=== PATIENT | male | born 1960 | race Caucasian/White ===

== ENCOUNTER 2018-01-17 07:48 | Emergency (ER) | payer OTHER ==
[2018-01-17] MEDS ORDERED: SODIUM CHLORIDE 0.9% 1,000 ML IV STA (08:23)
[2018-01-17] MEDS ORDERED: IPRATROPIUM 0.5 MG/2.5 ML NEBU INHALATION STA (08:23)
[2018-01-17] MEDS ORDERED: SODIUM CHLORIDE 0.9% 500 ML IV STA (08:23)
[2018-01-17] MEDS ORDERED: ALBUTEROL NEBULIZED 2.5 MG/3 ML INHALATION STA (08:23)
[2018-01-17] MEDS ORDERED: methylPREDNISolone SOD SUCCI 125 MG/2 ML VIAL IV STA (08:23)
[2018-01-17 09:04] LABS: Basophils # (A) 0.1 k/uL (0-0.2); Basophils % (A) 1 %; Eosinophils # (A) 0.3 k/uL (0-0.7); Eosinophils % (A) 4 %; HCT 46.4 % (39.0-53.0); HGB 15.9 gm/dL (13.0-17.5); Lymphocytes # (A) 0.7 k/uL (1.0-4.8); Lymphocytes % (A) 10 %; MCH 29.8 pg (25.0-35.0); MCHC 34.3 g/dL (31.0-37.0); MCV 86.7 fL (80.0-100.0); Mean Platelet Volume 6.6; Monocytes # (A) 0.7 k/uL (0-1.0); Monocytes % (A) 10 %; Neutrophils # (A) 5.1 k/uL (1.3-7.7); Neutrophils % (A) 73 %; Platelet Count 220 k/uL (150-450); RBC 5.35 m/uL (4.30-5.90); RDW 14.3 % (11.5-15.5)
--- NOTE | 2018-01-17 09:04 | ED ---
General Adult HPI - General Chief complaint: Shortness of Breath Stated complaint: NICHOLE Hx asthma Time Seen by Provider: 01/17/18 08:04 Source: patient, RN notes reviewed, old records reviewed Mode of arrival: wheelchair Limitations: no limitations - History of Present Illness Initial comments: This is a 57-year-old male the ER for evaluation significant shortness of breath 3 days. Patient has history of asthma. Denies travel history no chest pain. No fevers. No coughing of phlegm or sputum. Patient states symptoms are worse with activity better with rest. Patient not currently doing breathing treatments at home - Related Data Home Medications Medication Instructions Recorded Confirmed Albuterol Inhaler [Ventolin Hfa 2 puff INHALATION RT-Q6H PRN 01/17/18 01/17/18 Inhaler] Fluticasone/Salmeterol [Advair 1 puff INHALATION RT-BID 01/17/18 01/17/18 250-50 Diskus] Pseudoephedrine 12Hr [Sudafed 12Hr] 120 mg PO Q12H PRN 01/17/18 01/17/18 Allergies Allergy/AdvReac Type Severity Reaction Status Date / Time banana Allergy Swelling Verified 01/17/18 08:29 melon Allergy Swelling Verified 01/17/18 08:29 walnut Allergy Swelling Verified 01/17/18 08:29 Review of Systems ROS Statement: Those systems with pertinent positive or pertinent negative responses have been documented in the HPI. ROS Other: All systems not noted in ROS Statement are negative. Past Medical History Past Medical History: Asthma History of Any Multi-Drug Resistant Organisms: None Reported Past Surgical History: Tonsillectomy Past Psychological History: No Psychological Hx Reported Smoking Status: Former smoker Past Alcohol Use History: Rare Past Drug Use History: None Reported General Exam Limitations: no limitations General appearance: alert, in no apparent distress, anxious Head exam: Present: atraumatic, normocephalic, normal inspection Eye exam: Present: normal appearance, PERRL, EOMI. Absent: scleral icterus, conjunctival injection, periorbital swelling ENT exam: Present: normal exam, mucous membranes moist Neck exam: Present: normal inspection. Absent: tenderness, meningismus, lymphadenopathy Respiratory exam: Present: normal lung sounds bilaterally, wheezes, accessory muscle use, decreased breath sounds, prolonged expiratory. Absent: respiratory distress, rales, rhonchi, stridor Cardiovascular Exam: Present: normal rhythm, tachycardia, normal heart sounds. Absent: systolic murmur, diastolic murmur, rubs, gallop, clicks GI/Abdominal exam: Present: soft, normal bowel sounds. Absent: distended, tenderness, guarding, rebound, rigid Extremities exam: Present: normal inspection, full ROM, normal capillary refill. Absent: tenderness, pedal edema, joint swelling, calf tenderness Back exam: Present: normal inspection Neurological exam: Present: alert, oriented X3, CN II-XII intact Psychiatric exam: Present: normal affect, normal mood Skin exam: Present: warm, dry, intact, normal color. Absent: rash Course Vital Signs 01/17/18 01/17/18 01/17/18 07:54 08:19 08:48 Temperature 98.1 F Pulse Rate 98 90 Respiratory 18 22 Rate Blood Pressure 163/101 O2 Sat by Pulse 96 Oximetry 01/17/18 01/17/18 01/17/18 09:08 09:30 09:46 Temperature Pulse Rate 98 111 H 116 H Respiratory Rate Blood Pressure O2 Sat by Pulse Oximetry 01/17/18 01/17/18 01/17/18 09:56 10:23 10:37 Temperature Pulse Rate 111 H 102 H 100 Respiratory 20 19 Rate Blood Pressure 171/81 162/90 O2 Sat by Pulse 97 100 Oximetry 01/17/18 11:14 Temperature Pulse Rate Respiratory Rate Blood Pressure O2 Sat by Pulse 92 L Oximetry - Reevaluation(s) Reevaluation #1: 01/17/18 11:33 Patient did and laboratory walking pulse ox after 2 breathing treatments and did pass without oxygen in the 90-93 range EKG Findings - EKG Comments: EKG Findings:: EKG shows sinus rhythm rate of 90, NC 142, QRS 88, QTc 441 Medical Decision Making - Medical Decision Making 57 male the ER COPD exacerbation, acute onset of asthma COPD. Patient can be discharged home to return if shortness of breath worsens - Lab Data Result diagrams: 01/17/18 08:40 01/17/18 08:40 Lab Results 01/17/18 01/17/18 01/17/18 Range/Units 08:40 08:40 08:40 WBC (3.8-10.6) k/uL RBC (4.30-5.90) m/uL Hgb (13.0-17.5) gm/dL Hct (39.0-53.0) % MCV (80.0-100.0) fL MCH (25.0-35.0) pg MCHC (31.0-37.0) g/dL RDW (11.5-15.5) % Plt Count (150-450) k/uL Neutrophils % % Lymphocytes % % Monocytes % % Eosinophils % % Basophils % % Neutrophils # (1.3-7.7) k/uL Lymphocytes # (1.0-4.8) k/uL Monocytes # (0-1.0) k/uL Eosinophils # (0-0.7) k/uL Basophils # (0-0.2) k/uL PT 10.0 (9.0-12.0) sec INR 1.0 (<1.2) APTT 22.6 (22.0-30.0) sec D-Dimer 0.32 (<0.60) mg/L FEU Sodium 143 (137-145) mmol/L Potassium 4.4 (3.5-5.1) mmol/L Chloride 107 (98-107) mmol/L Carbon Dioxide 28 (22-30) mmol/L Anion Gap 8 mmol/L BUN 13 (9-20) mg/dL Creatinine 0.87 (0.66-1.25) mg/dL Est GFR (CKD-EPI)AfAm >90 (>60 ml/min/1.73 sqM) Est GFR (CKD-EPI)NonAf >90 (>60 ml/min/1.73 sqM) Glucose 107 H (74-99) mg/dL Calcium 9.5 (8.4-10.2) mg/dL Magnesium 2.1 (1.6-2.3) mg/dL Total Bilirubin 0.9 (0.2-1.3) mg/dL AST 31 (17-59) U/L ALT 70 (21-72) U/L Alkaline Phosphatase 51 (38-126) U/L Total Creatine Kinase (55-170) U/L CK-MB (CK-2) (0.0-2.4) ng/mL CK-MB (CK-2) Rel Index Troponin I (0.000-0.034) ng/mL NT-Pro-B Natriuret Pep 52 pg/mL Total Protein 7.6 (6.3-8.2) g/dL Albumin 4.6 (3.5-5.0) g/dL 01/17/18 01/17/18 Range/Units 08:40 08:40 WBC 7.0 (3.8-10.6) k/uL RBC 5.35 (4.30-5.90) m/uL Hgb 15.9 (13.0-17.5) gm/dL Hct 46.4 (39.0-53.0) % MCV 86.7 (80.0-100.0) fL MCH 29.8 (25.0-35.0) pg MCHC 34.3 (31.0-37.0) g/dL RDW 14.3 (11.5-15.5) % Plt Count 220 (150-450) k/uL Neutrophils % 73 % Lymphocytes % 10 % Monocytes % 10 % Eosinophils % 4 % Basophils % 1 % Neutrophils # 5.1 (1.3-7.7) k/uL Lymphocytes # 0.7 L (1.0-4.8) k/uL Monocytes # 0.7 (0-1.0) k/uL Eosinophils # 0.3 (0-0.7) k/uL Basophils # 0.1 (0-0.2) k/uL PT (9.0-12.0) sec INR (<1.2) APTT (22.0-30.0) sec D-Dimer (<0.60) mg/L FEU Sodium (137-145) mmol/L Potassium (3.5-5.1) mmol/L Chloride (98-107) mmol/L Carbon Dioxide (22-30) mmol/L Anion Gap mmol/L BUN (9-20) mg/dL Creatinine (0.66-1.25) mg/dL Est GFR (CKD-EPI)AfAm (>60 ml/min/1.73 sqM) Est GFR (CKD-EPI)NonAf (>60 ml/min/1.73 sqM) Glucose (74-99) mg/dL Calcium (8.4-10.2) mg/dL Magnesium (1.6-2.3) mg/dL Total Bilirubin (0.2-1.3) mg/dL AST (17-59) U/L ALT (21-72) U/L Alkaline Phosphatase (38-126) U/L Total Creatine Kinase 263 H (55-170) U/L CK-MB (CK-2) 3.8 H* (0.0-2.4) ng/mL CK-MB (CK-2) Rel Index 1.4 Troponin I <0.012 (0.000-0.034) ng/mL NT-Pro-B Natriuret Pep pg/mL Total Protein (6.3-8.2) g/dL Albumin (3.5-5.0) g/dL - Radiology Data Radiology results: report reviewed (Chest x-rays negative for acute disease), image reviewed Critical Care Time Critical Care Time: Yes Total Critical Care Time: 31 Disposition Clinical Impression: Acute exacerbation of chronic obstructive airways disease Disposition: HOME SELF-CARE Condition: Good Instructions: Acute Bronchitis (ED), Chronic Bronchitis (ED) Is patient prescribed a controlled substance at d/c from ED?: No Referrals: None,Stated [Primary Care Provider] - 1-2 days
[2018-01-17 09:18] LABS: ALT 70 U/L (21-72); AST 31 U/L (17-59); Albumin 4.6 g/dL (3.5-5.0); Alkaline Phosphatase 51 U/L (38-126); Anion Gap 8 mmol/L; Blood Urea Nitrogen 13 mg/dL (9-20); Calcium 9.5 mg/dL (8.4-10.2); Carbon Dioxide 28 mmol/L (22-30); Chloride 107 mmol/L (98-107); Glucose 107 mg/dL (74-99); Magnesium 2.1 mg/dL (1.6-2.3); Potassium 4.4 mmol/L (3.5-5.1); Sodium 143 mmol/L (137-145); Total Bilirubin 0.9 mg/dL (0.2-1.3); Total Protein 7.6 g/dL (6.3-8.2)
[2018-01-17 09:19] LABS: D-Dimer 0.32 mg/L FEU (<0.60); Partial Thromboplastin Time 22.6 sec (22.0-30.0)
--- NOTE | 2018-01-17 09:27 | XR ---
EXAMINATION TYPE: XR chest 1V portable DATE OF EXAM: 01/17/2018 COMPARISON: NONE HISTORY: Shortness of breath, cough TECHNIQUE: Single frontal view of the chest is obtained. FINDINGS: There is no focal air space opacity, pleural effusion, or pneumothorax seen. The cardiac silhouette size is within normal limits. Prominent lung volume could be indicative of COPD. Patient i s rotated. There are overlying cardiac leads. The osseous structures are intact. IMPRESSION: No acute process.
[2018-01-17 09:40] LABS: Creatine Kinase 263 U/L (55-170)
[2018-01-17 09:53] LABS: Troponin I <0.012 ng/mL (0.000-0.034)
[2018-01-17 09:57] LABS: Creatine Kinase MB 3.8 ng/mL (0.0-2.4)
[2018-01-17] MEDS ORDERED: IPRATROPIUM-ALBUTEROL 3 ML NEB INHALATION STA (10:13)
[2018-01-17 10:45] VITALS: PULSE 100
[2018-01-17 12:36] VITALS: BP 147/76; RESP 18; TEMP 98.2
== END 2018-01-17 12:32 | disposition home or self-care (01) ==
LOC: EC 07:48
DX: J44.1 Chronic obstructive pulmonary disease with (acute) exacerbation (principal); J45.901 Unspecified asthma with (acute) exacerbation; Z79.51 Long term (current) use of inhaled steroids; Z91.018 Allergy to other foods; Z87.891 Personal history of nicotine dependence; Z90.89 Acquired absence of other organs
CPT/HCPCS: 36415; 94644; 93005; 85379; 83880; 80053; 82550; 82553; 83735; 84484; 85025; 85610; 85730; 71045; 99285; 96374; 96361 ×3; J2930

== ENCOUNTER 2018-01-17 20:36 | Inpatient (IN) | payer OTHER ==
[2018-01-17] MEDS ORDERED: ALBUTEROL NEBULIZED 2.5 MG/3 ML INHALATION STA ×2 (21:27→21:34)
--- NOTE | 2018-01-17 21:33 | ED ---
SOB HPI - General Chief Complaint: Shortness of Breath Stated Complaint: SOB Time Seen by Provider: 01/17/18 21:19 Source: patient, RN notes reviewed, old records reviewed Mode of arrival: wheelchair Limitations: no limitations - History of Present Illness Initial Comments: This is a 57-year-old male who presents to the emergency department with chief complaint of shortness of breath for the past 3 days. Patient was seen here earlier today and diagnosed with acute exacerbation of COPD. Patient does report a history of asthma. He has not been doing any breathing treatments at home. When he presented to the emergency department earlier today, it was recommended that patient be admitted, however he did go home because he states he was feeling better. He states that when he got home the shortness of breath returned and has progressively worsened throughout the afternoon. He states that he did take a dose of prednisone at 5 PM. He was discharged home with prednisone 50 mg. Patient states that while in the emergency department he was given Solu-Medrol and breathing treatments. He states that this relieved his symptoms so he thought he was well enough to be discharged home. At this time, patient complains of shortness of breath with difficulty exhaling. Denies chest pain. Denies fevers or chills. Denies abdominal pain, nausea or vomiting. - Related Data Home Medications Medication Instructions Recorded Confirmed Albuterol Sulfate [Proair Hfa] 1 - 2 puff INHALATION RT-Q4H PRN 01/17/18 Fluticasone/Salmeterol [Advair 1 puff INHALATION RT-BID 01/17/18 01/17/18 250-50 Diskus] Pseudoephedrine 12Hr [Sudafed 12Hr] 120 mg PO Q12H PRN 01/17/18 01/17/18 Previous Rx's Medication Instructions Recorded predniSONE 50 mg PO DAILY #5 tab 01/17/18 Allergies Allergy/AdvReac Type Severity Reaction Status Date / Time banana Allergy Swelling Verified 01/17/18 21:30 melon Allergy Swelling Verified 01/17/18 21:30 walnut Allergy Swelling Verified 01/17/18 21:30 Review of Systems ROS Statement: Those systems with pertinent positive or pertinent negative responses have been documented in the HPI. ROS Other: All systems not noted in ROS Statement are negative. Past Medical History Past Medical History: Asthma Additional Past Medical History / Comment(s): shingles History of Any Multi-Drug Resistant Organisms: None Reported Past Surgical History: Tonsillectomy Past Psychological History: No Psychological Hx Reported Smoking Status: Former smoker Past Alcohol Use History: Rare Past Drug Use History: None Reported General Exam - General Exam Comments Initial Comments: General: Awake and alert, well-developed; in no apparent distress. HEENT: Head atraumatic, normocephalic. Pupils are equal, round and reactive to light. Extraocular movements intact. Oropharynx moist without erythema or exudate. Neck: Supple. Normal ROM. Cardiovascular: Regular rate and rhythm. No murmurs, rubs or gallops. Chest symmetrical. Respiratory: Labored breathing. Minimal movement of air throughout the lungs. There is diffuse wheezes noted. No rhonchi or rales. Musculoskeletal: Normal ROM, no tenderness bilateral upper and lower extremities. Skin: [employer], warm and dry without rashes or lesions. Neurological: Alert and oriented x3. CN II-XII grossly intact. Speech is fluent and answers are appropriate. No focal neuro deficits. Psychiatric: Normal mood and affect. No overt signs of depression or anxiety noted. Limitations: no limitations Course Vital Signs 01/17/18 01/17/18 01/17/18 20:45 21:36 21:46 Temperature 98.0 F Pulse Rate 109 H 100 106 H Respiratory 18 22 Rate Blood Pressure 163/85 169/93 O2 Sat by Pulse 95 97 Oximetry 01/17/18 21:51 Temperature Pulse Rate 106 H Respiratory Rate Blood Pressure O2 Sat by Pulse Oximetry Medical Decision Making - Medical Decision Making This is a 57-year-old male who presented to the emergency department with chief complaint of shortness of breath. Patient was seen earlier today and it was recommended that he be admitted for acute asthma exacerbation. Patient states after some Solu-Medrol and breathing treatments he felt better and wanted to be discharged home. He states that when he returned home this afternoon his difficulty in breathing returned. He states that it has progressively worsened throughout the afternoon. Patient re-presented to the emergency department. On physical examination, patient did have labored breathing. Diminished breath sounds throughout all lung sosa with diffuse wheezes. Patient received multiple breathing treatments with minimal improvement in lung sounds. Review of previous laboratory studies and chest x-ray revealed no significant abnormalities. CBC and CMP were unremarkable. Troponin and d-dimer negative. Chest x-ray revealed evidence for COPD, however no other acute abnormalities. This case was discussed with attending physician, Dr. Rubi. Patient will be admitted for acute asthma exacerbation to Dr. Auguste. Financial Business Analyst, Dr. Aggarwal will be consulted. Patient will be started on nebulizer treatments and prednisone. Patient is in agreement for admission. Vitals are stable and he is in no acute distress. Disposition Clinical Impression: Acute asthma exacerbation Disposition: ADMITTED IP TO THIS HOSP Condition: Fair Is patient prescribed a controlled substance at d/c from ED?: No Referrals: None,Stated [Primary Care Provider] - 1-2 days Time of Disposition: 22:34
[2018-01-17] MEDS: IPRATROPIUM-ALBUTEROL 3 ML NEB INHALATION STA (21:34)
[2018-01-17] MEDS ORDERED: ALBUTEROL NEBULIZED 2.5 MG/3 ML INHALATION PRN (22:35)
[2018-01-17] MEDS: SODIUM CHLORIDE 0.9% 1,000 ML IV SCH (23:15)
[2018-01-18] MEDS: IPRATROPIUM-ALBUTEROL 3 ML NEB INHALATION PRN ×3 (02:04→08:41)
[2018-01-18] MEDS: SODIUM CHLORIDE 0.9% 1,000 ML IV SCH (08:19)
[2018-01-18] MEDS ORDERED: predniSONE 20 MG TAB PO SCH (09:00)
[2018-01-18] MEDS ORDERED: ALBUTEROL NEBULIZED 2.5 MG/3 ML INHALATION PRN (10:38)
[2018-01-18] MEDS: AMOXIC-POT CLAV 875-125MG 1 EACH TAB PO SCH ×2 (11:46→20:25)
[2018-01-18] MEDS: methylPREDNISolone SOD SUCCI 125 MG/2 ML VIAL IV SCH ×2 (11:46→18:04)
[2018-01-18] MEDS: IPRATROPIUM-ALBUTEROL 3 ML NEB INHALATION SCH ×3 (11:52→19:24)
[2018-01-18 11:56] LABS: Glucose,Whole Blood 123 mg/dL (75-99)
[2018-01-18] MEDS: INSULIN ASPART 100 UNIT/ML 1 ML 10 ML VIAL SQ SCH ×3 (11:59→21:27)
[2018-01-18] MEDS ORDERED: ALBUTEROL NEBULIZED 2.5 MG/3 ML INHALATION SCH (12:00)
[2018-01-18] MEDS ORDERED: IPRATROPIUM-ALBUTEROL 3 ML NEB INHALATION STA (13:26)
[2018-01-18] MEDS: IPRATROPIUM-ALBUTEROL 3 ML NEB INHALATION STA (13:34)
[2018-01-18] MEDS: ALPRAZolam 0.25 MG TAB PO PRN (13:36)
--- NOTE | 2018-01-18 13:50 | P.HPIM ---
History of Present Illness Patient is 70-year-old gentleman with history of asthma since childhood patient used to smoke 20 years ago came in with complaints of wheezing shortness of breath going on for about a few days about 3-4 days, patient visited ER yesterday and the left against medical advise was given oral steroids without any significant improvement patient 6 hours later had worsening symptoms of severe shortness of breath and wheezing came back to ER was subsequently admitted patient is comparing of cough with the yellowish to greenish sputum production and patient chest x-ray did not show any pneumonic process patient has been wheezing on exam and significantly limited air entry into bilateral lung sosa CBC and CMP during his previous visit yesterday are essentially within normal limits. Review of Systems REVIEW OF SYSTEMS: CONSTITUTIONAL: No fever, no malaise, no fatigue. HEENT: No recent visual problems or hearing problems. Denied any sore throat. CARDIOVASCULAR: No chest pain, orthopnea, PND, no palpitations, no syncope. PULMONARY:, no hemoptysis. GASTROINTESTINAL: No diarrhea, no nausea, no vomiting, no abdominal pain. Normoactive bowel sounds. NEUROLOGICAL: No headaches, no weakness, no numbness. HEMATOLOGICAL: Denies any bleeding or petechiae. GENITOURINARY: Denies any burning micturition, frequency, or urgency. MUSCULOSKELETAL/RHEUMATOLOGICAL: Denies any joint pain, swelling, or any muscle pain. ENDOCRINE: Denies any polyuria or polydipsia. The rest of the 14-point review of systems is negative. Past Medical History Past Medical History: Asthma Additional Past Medical History / Comment(s): shingles History of Any Multi-Drug Resistant Organisms: None Reported Past Surgical History: Tonsillectomy Past Anesthesia/Blood Transfusion Reactions: No Reported Reaction Past Psychological History: No Psychological Hx Reported Smoking Status: Former smoker Past Alcohol Use History: Rare Past Drug Use History: None Reported - Past Family History Father Family Medical History: Dementia Mother Additional Family Medical History / Comment(s): AAA Medications and Allergies Home Medications Medication Instructions Recorded Confirmed Type Albuterol Sulfate [Proair Hfa] 1 - 2 puff INHALATION RT-Q4H PRN 01/17/18 History Fluticasone/Salmeterol [Advair 1 puff INHALATION RT-BID 01/17/18 01/17/18 History 250-50 Diskus] Pseudoephedrine 12Hr [Sudafed 12Hr] 120 mg PO Q12H PRN 01/17/18 01/17/18 History predniSONE 50 mg PO DAILY #5 tab 01/17/18 01/17/18 Rx Allergies Allergy/AdvReac Type Severity Reaction Status Date / Time banana Allergy Swelling Verified 01/17/18 21:30 melon Allergy Swelling Verified 01/17/18 21:30 walnut Allergy Swelling Verified 01/17/18 21:30 Physical Exam Vitals: Vital Signs Temp Pulse Pulse Resp BP BP Pulse Ox 01/18/18 13:35 112 H 01/18/18 12:08 116 H 01/18/18 11:53 108 H 01/18/18 08:53 104 H 01/18/18 08:41 100 01/18/18 06:07 97.1 F L 103 H 20 138/80 98 01/18/18 05:44 100 01/18/18 05:29 100 01/18/18 02:17 96 01/18/18 02:08 97 96 01/17/18 23:35 98.1 F 96 18 142/87 96 01/17/18 22:58 96 20 146/76 96 01/17/18 21:51 106 H 01/17/18 21:46 106 H 22 169/93 97 01/17/18 21:36 100 01/17/18 20:45 98.0 F 109 H 18 163/85 95 Intake and Output 01/17/18 01/18/18 01/18/18 22:59 06:59 14:59 Intake Total 600 Balance 600 Intake: Oral 600 Other: # Voids 1 Weight 84.822 kg PHYSICAL EXAMINATION: GENERAL: The patient is alert and oriented x3, not in any acute distress. Well developed, well nourished. HEENT: Pupils are round and equally reacting to light. EOMI. No scleral icterus. No conjunctival pallor. Normocephalic, atraumatic. No pharyngeal erythema. No thyromegaly. CARDIOVASCULAR: S1 and S2 present. No murmurs, rubs, or gallops. PULMONARY: Significant expiratory wheezing and limited air entry into bilateral lung sosa. ABDOMEN: Soft, nontender, nondistended, normoactive bowel sounds. No palpable organomegaly. MUSCULOSKELETAL: No joint swelling or deformity. EXTREMITIES: No cyanosis, clubbing, or pedal edema. NEUROLOGICAL: Gross neurological examination did not reveal any focal deficits. SKIN: No rashes. Results Labs: Abnormal Lab Results - Last 24 Hours (Table) 01/18/18 Range/Units 11:54 POC Glucose (mg/dL) 123 H (75-99) mg/dL Thrombosis Risk Factor Assmnt - Choose All That Apply Any of the Below Risk Factors Present?: Yes Each Factor Represents 1 point: Abnormal pulmonary function (COPD), Age 41-60 years Other Risk Factors: No Other congenital or acquired thrombophilia - If yes, enter type in comment: No Thrombosis Risk Factor Assessment Total Risk Factor Score: 2 Thrombosis Risk Factor Assessment Level: Low Risk Assessment and Plan Plan: -Acute hypercapnic respiratory failure secondary to COPD exacerbation patient is started on systemic steroids inhalational treatments patient doesn't wear oxygen at home. Patient mostly has a COPD exacerbation along with asthma exacerbation -Tachycardia secondary to hypoxemia expected to improve
[2018-01-18 14:50] LABS: Anion Gap 11 mmol/L; Blood Urea Nitrogen 16 mg/dL (9-20); Calcium 9.6 mg/dL (8.4-10.2); Carbon Dioxide 23 mmol/L (22-30); Chloride 108 mmol/L (98-107); Glucose 134 mg/dL (74-99); Potassium 4.7 mmol/L (3.5-5.1); Sodium 142 mmol/L (137-145)
[2018-01-18 14:59] LABS: Basophils % (A) 0 %; Eosinophils % (A) 0 %; HCT 44.7 % (39.0-53.0); HGB 14.9 gm/dL (13.0-17.5); Lymphocytes # (A) 0.6 k/uL (1.0-4.8); Lymphocytes % (A) 5 %; MCH 29.3 pg (25.0-35.0); MCHC 33.3 g/dL (31.0-37.0); MCV 88.1 fL (80.0-100.0); Monocytes # (A) 0.4 k/uL (0-1.0); Monocytes % (A) 3 %; Neutrophils # (A) 10.9 k/uL (1.3-7.7); Neutrophils % (A) 91 %; Platelet Count 237 k/uL (150-450); RBC 5.07 m/uL (4.30-5.90); RDW 14.4 % (11.5-15.5)
[2018-01-18] MEDS: PANTOPRAZOLE 40 MG/10 ML VIAL IVP SCH (15:37)
--- NOTE | 2018-01-18 16:12 | P.CNPUL ---
History of Present Illness Consult date: 01/18/18 Requesting physician: [place] Reason for consult: dyspnea, asthma Chief complaint: Shortness of breath, yellow phlegm production, acute asthma exacerbation History of present illness: Mr. Nash is a 57-year-old white male patient who currently has no primary care provider, presented to the emergency department on 01/17/2018 at 2036 with complaints of increasing shortness of breath, chest tightness, wheezing chest congestion, yellow phlegm production. Patient was in the emergency department earlier in the day for evaluation of his symptoms, has underlying history of asthma, and based on his symptoms and inpatient admission was recommended initially. However after he was given several nebulized treatments [id number] , he was given IV Solu-Medrol, was feeling better, and he insisted on going home. After he went home, his shortness of breath was still quite significant, patient was short of breath even with conversation. Hence he returned to the emergency department. Patient recently moved from [place], and has not established himself with the primary care provider or circulation assistant. He was diagnosed with bronchial asthma in childhood, and his common triggers is change of weather, increase humidity. Patient had undergone ALLERGY testing in the past, and tested positive for multiple allergens, was receiving ALLERGY shots, however they did not seem to improve his symptoms, and patient was experiencing side effects from them, like headaches. Hence he discontinued those. Did have a remote history of smoking for about 10 years, quit in his 20s. Has a prior history of status asthmaticus, requiring intubation and mechanical ventilation at age of 25. No major exacerbations or hospitalizations since then. He is maintained on a combination of Advair 250/50, and Ventolin. Has nighttime symptoms less than weekly, uses Ventolin inhaler on average about 2-3 times a week. His asthma has been under good control for a long time until this episode. Patient denied fever or chills, his symptoms started with a cold last Monday, became progressively worse. Chest x-ray showed no acute process. EKG was normal sinus rhythm. Patient does not have any other significant medical history. He was started on oral prednisone 50 mg, breathing treatments, and was admitted for further management. Review of Systems All systems: negative Constitutional: Denies chills, Denies fever Eyes: denies blurred vision, denies pain Ears, nose, mouth and throat: Denies headache, Denies sore throat Cardiovascular: Denies chest pain, Denies shortness of breath Respiratory: Reports congestion, Reports cough with sputum, Reports dyspnea, Reports wheezing, Denies cough Gastrointestinal: Denies abdominal pain, Denies diarrhea, Denies nausea, Denies vomiting Musculoskeletal: Denies myalgias Integumentary: Denies pruritus, Denies rash Neurological: Denies numbness, Denies weakness Psychiatric: Denies anxiety, Denies depression Endocrine: Denies fatigue, Denies weight change Past Medical History Past Medical History: Asthma Additional Past Medical History / Comment(s): shingles History of Any Multi-Drug Resistant Organisms: None Reported Past Surgical History: Tonsillectomy Past Anesthesia/Blood Transfusion Reactions: No Reported Reaction Past Psychological History: No Psychological Hx Reported Smoking Status: Former smoker Past Alcohol Use History: Rare Past Drug Use History: None Reported - Past Family History Father Family Medical History: Dementia Mother Additional Family Medical History / Comment(s): AAA Medications and Allergies Home Medications Medication Instructions Recorded Confirmed Type Albuterol Sulfate [Proair Hfa] 1 - 2 puff INHALATION RT-Q4H PRN 01/17/18 History Fluticasone/Salmeterol [Advair 1 puff INHALATION RT-BID 01/17/18 01/17/18 History 250-50 Diskus] Pseudoephedrine 12Hr [Sudafed 12Hr] 120 mg PO Q12H PRN 01/17/18 01/17/18 History predniSONE 50 mg PO DAILY #5 tab 01/17/18 01/17/18 Rx Allergies Allergy/AdvReac Type Severity Reaction Status Date / Time banana Allergy Swelling Verified 01/17/18 21:30 melon Allergy Swelling Verified 01/17/18 21:30 walnut Allergy Swelling Verified 01/17/18 21:30 Physical Exam Vitals: Vital Signs Temp Pulse Pulse Resp BP BP Pulse Ox 01/18/18 13:50 112 H 01/18/18 13:35 112 H 01/18/18 12:08 116 H 01/18/18 11:53 108 H 01/18/18 08:53 104 H 01/18/18 08:41 100 01/18/18 06:07 97.1 F L 103 H 20 138/80 98 01/18/18 05:44 100 01/18/18 05:29 100 01/18/18 02:17 96 01/18/18 02:08 97 96 01/17/18 23:35 98.1 F 96 18 142/87 96 01/17/18 22:58 96 20 146/76 96 01/17/18 21:51 106 H 01/17/18 21:46 106 H 22 169/93 97 01/17/18 21:36 100 01/17/18 20:45 98.0 F 109 H 18 163/85 95 Intake and Output 01/17/18 01/18/18 01/18/18 22:59 06:59 14:59 Intake Total 600 Output Total 400 Balance 600 -400 Intake: Oral 600 Output: Urine 400 Other: # Voids 1 Weight 84.822 kg GENERAL EXAM: Alert, pleasant, 57-year-old white male mildly short of breath, with normal conversation HEAD: Normocephalic/atraumatic. EYES: Normal reaction of pupils, equal size. Conjunctiva pink, sclera white. NOSE: Clear with pink turbinates. THROAT: No erythema or exudates. NECK: No masses, no JVD, no thyroid enlargement, no adenopathy. CHEST: No chest wall deformity. Symmetrical expansion. LUNGS: Diminished lung sounds, with diffuse wheezing and prolongation of the expiratory phase CVS: Regular rate and rhythm, normal S1 and S2, no gallops, no murmurs, no rubs ABDOMEN: Soft, nontender. No hepatosplenomegaly, normal bowel sounds, no guarding or rigidity. EXTREMITIES: No clubbing, no edema, no cyanosis, 2+ pulses and upper and lower extremities. MUSCULOSKELETAL: Muscle strength and tone normal. SPINE: No scoliosis or deformity SKIN: No rashes CENTRAL NERVOUS SYSTEM: Alert and oriented -3. No focal deficits, tone is normal in all 4 extremities. PSYCHIATRIC: Alert and oriented -3. Appropriate affect. Intact judgment and insight. Results - Laboratory Findings CBC and BMP: 01/18/18 14:12 01/18/18 14:12 Abnormal lab findings: Abnormal Labs 01/18/18 11:54 POC Glucose (mg/dL) 123 H - Diagnostic Findings Chest x-ray: report reviewed, image reviewed Additional studies: EKG reviewed Assessment and Plan Plan: Assessment: #1. Acute exacerbation of chronic bronchial asthma with tracheobronchitis #2. Remote history of nicotine dependence, patient quit drinking over 25 years ago, carries a [id number] smoking history or graft #3. Multiple ALLERGIES Plan: We will switch to oral prednisone to IV Solu-Medrol, we will start the patient on Augmentin, start Pulmicort, Perforomist, Singulair, Claritin, continue nebulized bronchodilators. Chest x-ray was reviewed by Dr. Hutchins, and did not show any acute cardiopulmonary process. I performed a history & physical examination of the patient and discussed their management with my nurse practitioner, Janett Ford. I reviewed the nurse practitioner's note and agree with the documented findings and plan of care. Lung sounds are positive for diffuse wheezes throughout the lung sosa. The findings and the impression was discussed with the patient. I attest to the documentation by the nurse practitioner. Time with Patient: Greater than 30
[2018-01-18] MEDS: LORATADINE 10 MG TAB PO SCH (16:32)
[2018-01-18 17:24] LABS: Glucose,Whole Blood 149 mg/dL (75-99)
[2018-01-18] MEDS: BUDESONIDE 1 MG/2 ML NEBU INHALATION SCH (19:24)
[2018-01-18] MEDS: FORMOTEROL FUMARATE 20 MCG/2 ML NEBU INHALATION SCH (19:35)
[2018-01-18] MEDS ORDERED: NON-FORMULARY DRUG (Fluticasone/Salmeterol [Advair 250-50 Diskus] 1 PUFF) INHALATION SCH (20:00)
[2018-01-18] MEDS: HEPARIN SODIUM,PORCINE 5,000 UNIT/ML 1 ML VIAL SQ SCH (20:25)
[2018-01-18] MEDS: MONTELUKAST 10 MG TAB PO SCH (20:25)
[2018-01-18] MEDS ORDERED: MELATONIN 3 MG TABLET PO PRN (21:00)
[2018-01-18 21:18] LABS: Glucose,Whole Blood 161 mg/dL (75-99)
[2018-01-19] MEDS ORDERED: methylPREDNISolone SOD SUCCI 125 MG/2 ML VIAL ONE
[2018-01-19 03:51] LABS: Hemoglobin A1C 5.5 % (4.0-6.0)
[2018-01-19] MEDS: methylPREDNISolone SOD SUCCI 125 MG/2 ML VIAL IV SCH ×4 (04:49→17:06)
[2018-01-19 07:17] LABS: Glucose,Whole Blood 138 mg/dL (75-99)
[2018-01-19] MEDS: BUDESONIDE 1 MG/2 ML NEBU INHALATION SCH ×2 (07:31→20:05)
[2018-01-19] MEDS: FORMOTEROL FUMARATE 20 MCG/2 ML NEBU INHALATION SCH ×2 (07:31→20:05)
[2018-01-19] MEDS: IPRATROPIUM-ALBUTEROL 3 ML NEB INHALATION SCH ×4 (07:31→20:05)
[2018-01-19 08:14] LABS: HCT 42.5 % (39.0-53.0); HGB 14.4 gm/dL (13.0-17.5); MCH 29.9 pg (25.0-35.0); Mean Platelet Volume 6.9; Platelet Count 250 k/uL (150-450); RBC 4.83 m/uL (4.30-5.90); WBC 13.6 k/uL (3.8-10.6)
[2018-01-19] MEDS: AMOXIC-POT CLAV 875-125MG 1 EACH TAB PO SCH ×2 (08:20→22:08)
[2018-01-19] MEDS: LORATADINE 10 MG TAB PO SCH (08:20)
[2018-01-19] MEDS: PANTOPRAZOLE 40 MG/10 ML VIAL IVP SCH (08:20)
[2018-01-19] MEDS: HEPARIN SODIUM,PORCINE 5,000 UNIT/ML 1 ML VIAL SQ SCH ×2 (08:20→22:09)
[2018-01-19] MEDS: INSULIN ASPART 100 UNIT/ML 1 ML 10 ML VIAL SQ SCH ×4 (08:20→22:08)
[2018-01-19 08:21] LABS: Anion Gap 8 mmol/L; Blood Urea Nitrogen 20 mg/dL (9-20); Calcium 9.4 mg/dL (8.4-10.2); Carbon Dioxide 27 mmol/L (22-30); Chloride 104 mmol/L (98-107); Glucose 142 mg/dL (74-99); Potassium 4.7 mmol/L (3.5-5.1); Sodium 139 mmol/L (137-145)
[2018-01-19 11:35] LABS: Glucose,Whole Blood 141 mg/dL (75-99)
--- NOTE | 2018-01-19 12:45 | P.PN ---
Subjective Progress Note Date: 01/19/18 Principal diagnosis: Acute exacerbation of chronic bronchial asthma with tracheobronchitis Mr. Nash is a 57-year-old white male patient who currently has no primary care provider, presented to the emergency department on 01/17/2018 at 2036 with complaints of increasing shortness of breath, chest tightness, wheezing chest congestion, yellow phlegm production. Patient was in the emergency department earlier in the day for evaluation of his symptoms, has underlying history of asthma, and based on his symptoms and inpatient admission was recommended initially. However after he was given several nebulized treatments [id number] , he was given IV Solu-Medrol, was feeling better, and he insisted on going home. After he went home, his shortness of breath was still quite significant, patient was short of breath even with conversation. Hence he returned to the emergency department. Patient recently moved from [place], and has not established himself with the primary care provider or electrolytic de scaler. He was diagnosed with bronchial asthma in childhood, and his common triggers is change of weather, increase humidity. Patient had undergone ALLERGY testing in the past, and tested positive for multiple allergens, was receiving ALLERGY shots, however they did not seem to improve his symptoms, and patient was experiencing side effects from them, like headaches. Hence he discontinued those. Did have a remote history of smoking for about 10 years, quit in his 20s. Has a prior history of status asthmaticus, requiring intubation and mechanical ventilation at age of 25. No major exacerbations or hospitalizations since then. He is maintained on a combination of Advair 250/50, and Ventolin. Has nighttime symptoms less than weekly, uses Ventolin inhaler on average about 2-3 times a week. His asthma has been under good control for a long time until this episode. Patient denied fever or chills, his symptoms started with a cold last Monday, became progressively worse. Chest x-ray showed no acute process. EKG was normal sinus rhythm. Patient does not have any other significant medical history. He was started on oral prednisone 50 mg, breathing treatments, and was admitted for further management. On 01/19/2018 patient seen in follow-up on medical surgical floor. He reports some improvement in terms of chest tightness, but remains still very dyspneic even at rest. He was able to get up and go to the bathroom, and the patient states this has been an improvement in activity tolerance. He is wearing oxygen intermittently, although his room air pulse ox was 92%, lung sounds still reveal diminished lung sounds with diffuse wheezes, patient is afebrile. He states he had a severe coughing spell last night, and was able to bring up some sputum, and felt slightly better. Continues on IV Solu-Medrol, Pulmicort, Perforomist, empiric antibiotics, Claritin, and Singulair. Making slow improvement Objective - Vital Signs Vital signs: Vital Signs Temp 97.0 F L 01/19/18 06:16 Pulse 90 01/19/18 11:28 Resp 18 01/19/18 06:16 BP 126/71 01/19/18 06:16 Pulse Ox 92 L 01/19/18 06:16 Intake & Output 01/18/18 01/19/18 01/19/18 18:59 06:59 18:59 Intake Total 960 Output Total 400 Balance -400 960 Intake: Oral 960 Output: Urine 400 Other: # Voids 1 - Exam GENERAL EXAM: Alert, pleasant, 57-year-old white male mildly short of breath, with normal conversation HEAD: Normocephalic/atraumatic. EYES: Normal reaction of pupils, equal size. Conjunctiva pink, sclera white. NOSE: Clear with pink turbinates. THROAT: No erythema or exudates. NECK: No masses, no JVD, no thyroid enlargement, no adenopathy. CHEST: No chest wall deformity. Symmetrical expansion. LUNGS: Diminished lung sounds, with diffuse wheezing and prolongation of the expiratory phase CVS: Regular rate and rhythm, normal S1 and S2, no gallops, no murmurs, no rubs ABDOMEN: Soft, nontender. No hepatosplenomegaly, normal bowel sounds, no guarding or rigidity. EXTREMITIES: No clubbing, no edema, no cyanosis, 2+ pulses and upper and lower extremities. MUSCULOSKELETAL: Muscle strength and tone normal. SPINE: No scoliosis or deformity SKIN: No rashes CENTRAL NERVOUS SYSTEM: Alert and oriented -3. No focal deficits, tone is normal in all 4 extremities. PSYCHIATRIC: Alert and oriented -3. Appropriate affect. Intact judgment and insight. - Labs CBC & Chem 7: 01/19/18 07:53 01/19/18 07:53 Labs: Abnormal Lab Results - Last 24 Hours (Table) 01/18/18 01/18/18 01/18/18 Range/Units 14:12 14:12 17:14 WBC 12.0 H (3.8-10.6) k/uL Neutrophils # 10.9 H (1.3-7.7) k/uL Lymphocytes # 0.6 L (1.0-4.8) k/uL Chloride 108 H (98-107) mmol/L Glucose 134 H (74-99) mg/dL POC Glucose (mg/dL) 149 H (75-99) mg/dL 01/18/18 01/19/18 01/19/18 Range/Units 20:54 07:15 07:53 WBC 13.6 H (3.8-10.6) k/uL Neutrophils # (1.3-7.7) k/uL Lymphocytes # (1.0-4.8) k/uL Chloride (98-107) mmol/L Glucose (74-99) mg/dL POC Glucose (mg/dL) 161 H 138 H (75-99) mg/dL 01/19/18 01/19/18 Range/Units 07:53 11:33 WBC (3.8-10.6) k/uL Neutrophils # (1.3-7.7) k/uL Lymphocytes # (1.0-4.8) k/uL Chloride (98-107) mmol/L Glucose 142 H (74-99) mg/dL POC Glucose (mg/dL) 141 H (75-99) mg/dL Assessment and Plan Plan: Assessment: #1. Acute exacerbation of chronic bronchial asthma with tracheobronchitis #2. Remote history of nicotine dependence, patient quit smoking over 25 years ago, carries a [id number] smoking history #3. Multiple ALLERGIES Plan: Continue current medical treatment, continue IV steroids, continue Augmentin, continue Pulmicort and Perforomist, Singulair and Claritin. The patient is making some improvement, but still remains quite bronchospastic and limited in terms of activity tolerance, very dyspneic even at rest. We will add Mucinex I performed a history & physical examination of the patient and discussed their management with my nurse practitioner, Janett Ford. I reviewed the nurse practitioner's note and agree with the documented findings and plan of care. Lung sounds are positive for diffuse wheezes throughout the lung sosa. The findings and the impression was discussed with the patient. I attest to the documentation by the nurse practitioner. Time with Patient: Less than 30
[2018-01-19] MEDS: guaiFENesin 600 MG TABLET.ER PO SCH ×2 (13:11→22:08)
--- NOTE | 2018-01-19 15:44 | CDI ---
Last Revision, June 2017 Documentation Clarification Form Date: 01/19/2018 3:36:00 PM From: Iliana Lentz [facility], CCDS Admit Date: 01/18/2018 3:26:00 PM Patient Name: Juliano Nash Visit Number: [id number] Discharge Date: ATTENTION: The Clinical Documentation Specialists (CDI) and [facility] Coding Staff appreciate your assistance in clarifying documentation. Please respond to the clarification below the line at the bottom and electronically sign. The CDI & [facility] Coding staff will review the response and follow-up if needed. Please note: Queries are made part of the Legal Health Record. If you have any questions, please contact the author of this message via ITS. Dr. Fany Aggarwal: Asthma is documented in the History & Physical and also the Pulmonary consult as "Acute exacerbation of chronic bronchial asthma with tracheobronchitis." Diagnosed with Acute exacerbation of COPD & acute exacerbation asthma nos. Patient history/risk factors: COPD, Asthma since childhood, Multiple allergies, Former smoker. Clinical Indicators: Presented with failed op tx with wheezing & sob. Vital Signs: P 109, R 18 (sob), BP 163/85, PO 95 ra. Treatment: O2 2Lnc, Neb bronchodilator treatments, IV steroids. In your professional opinion, can you please further specify the asthma if known : Severity: o Mild intermittent o Mild persistent o Moderate persistent o Severe persistent o Other, please specify o Unable to determine Form or Type: o Cough variant o Childhood o Exercise induced bronchospasm o Extrinsic allergic o Idiosyncratic o Intrinsic nonallergic o Mixed o Other, please specify o Unable to determine Please continue to document in your progress notes and discharge summary in order to capture severity of illness and risk of mortality. Include clinical findings that support your diagnosis. 1. Acute exacerbation of mild persistent asthma MTDD
[2018-01-19 16:54] LABS: Glucose,Whole Blood 167 mg/dL (75-99)
--- NOTE | 2018-01-19 19:24 | P.PN ---
Subjective Progress Note Date: 01/19/18 Progress note being dictated for Dr. Edwards Interval history:Patient is 70-year-old gentleman with history of asthma since childhood patient used to smoke 20 years ago came in with complaints of wheezing shortness of breath going on for about a few days about 3-4 days, patient visited ER yesterday and the left against medical advise was given oral steroids without any significant improvement patient 6 hours later had worsening symptoms of severe shortness of breath and wheezing came back to ER was subsequently admitted patient is comparing of cough with the yellowish to greenish sputum production and patient chest x-ray did not show any pneumonic process patient has been wheezing on exam and significantly limited air entry into bilateral lung sosa CBC and CMP during his previous visit yesterday are essentially within normal limits. Review of Systems REVIEW OF SYSTEMS: CONSTITUTIONAL: No fever, no malaise, no fatigue. HEENT: No recent visual problems or hearing problems. Denied any sore throat. CARDIOVASCULAR: No chest pain, orthopnea, PND, no palpitations, no syncope. PULMONARY:, no hemoptysis. GASTROINTESTINAL: No diarrhea, no nausea, no vomiting, no abdominal pain. Normoactive bowel sounds. NEUROLOGICAL: No headaches, no weakness, no numbness. HEMATOLOGICAL: Denies any bleeding or petechiae. GENITOURINARY: Denies any burning micturition, frequency, or urgency. MUSCULOSKELETAL/RHEUMATOLOGICAL: Denies any joint pain, swelling, or any muscle pain. ENDOCRINE: Denies any polyuria or polydipsia. The rest of the 14-point review of systems is negative. 01/19/2018 maintained on nebulized bronchodilators, empiric antibiotics, IV steroids .breathing slow to improve, reports exertional dyspnea improving yet continued dyspnea at rest. Bronchospastic. Maintaining O2 sats in the low 90s on room air. Afebrile. Objective - Vital Signs Vital signs: Vital Signs Temp 98.9 F 01/19/18 14:54 Pulse 92 01/19/18 16:00 Resp 16 01/19/18 14:54 BP 134/77 01/19/18 14:54 Pulse Ox 90 L 01/19/18 14:54 Intake & Output 01/19/18 01/19/18 01/20/18 06:59 18:59 06:59 Intake Total 960 Balance 960 Intake: Oral 960 Other: # Voids 1 1 - Exam GENERAL: The patient is alert and oriented x3, not in any acute distress. Well developed, well nourished. HEENT: Pupils are round and equally reacting to light. EOMI. No scleral icterus. No conjunctival pallor. Normocephalic, atraumatic. CARDIOVASCULAR: S1 and S2 present. No murmurs, rubs, or gallops. PULMONARY: Significant expiratory wheezing and limited air entry into bilateral lung sosa. ABDOMEN: Soft, nontender, nondistended, normoactive bowel sounds. No palpable organomegaly. MUSCULOSKELETAL: No joint swelling or deformity. EXTREMITIES: No cyanosis, clubbing, or pedal edema. NEUROLOGICAL: Gross neurological examination did not reveal any focal deficits. SKIN: No rashes. - Labs CBC & Chem 7: 01/19/18 07:53 01/19/18 07:53 Labs: Abnormal Lab Results - Last 24 Hours (Table) 01/18/18 01/19/18 01/19/18 Range/Units 20:54 07:15 07:53 WBC 13.6 H (3.8-10.6) k/uL Glucose (74-99) mg/dL POC Glucose (mg/dL) 161 H 138 H (75-99) mg/dL 01/19/18 01/19/18 01/19/18 Range/Units 07:53 11:33 16:35 WBC (3.8-10.6) k/uL Glucose 142 H (74-99) mg/dL POC Glucose (mg/dL) 141 H 167 H (75-99) mg/dL Assessment and Plan Assessment: -Acute hypercapnic, hypoxic respiratory failure secondary to COPD exacerbation with tracheobronchitis. Patient mostly has a COPD exacerbation along with asthma exacerbation. -Tachycardia secondary to hypoxemia, resolved. Plan: Continue current medication regime ,monitoring and symptomatic treatment. Maintain nebulized bronchodilators, steroids, antibiotics. Increase ambulation as tolerated. The impression and plan of care has been dictated as directed. : I performed a history and examination of this patient, discussed the same with the dictator. I agree with the dictator's note ,documented as a scribe. Any additional findings or plans will be noted.
[2018-01-19 20:46] LABS: Glucose,Whole Blood 176 mg/dL (75-99)
[2018-01-19] MEDS: MONTELUKAST 10 MG TAB PO SCH (22:08)
[2018-01-19] MEDS: IPRATROPIUM-ALBUTEROL 3 ML NEB INHALATION PRN (23:55)
[2018-01-20] MEDS: methylPREDNISolone SOD SUCCI 125 MG/2 ML VIAL IV SCH ×5 (00:14→23:36)
[2018-01-20] MEDS: IPRATROPIUM-ALBUTEROL 3 ML NEB INHALATION PRN ×2 (03:21→23:14)
[2018-01-20 07:26] LABS: Glucose,Whole Blood 147 mg/dL (75-99)
[2018-01-20] MEDS: AMOXIC-POT CLAV 875-125MG 1 EACH TAB PO SCH ×2 (08:29→21:25)
[2018-01-20] MEDS: LORATADINE 10 MG TAB PO SCH (08:29)
[2018-01-20] MEDS: guaiFENesin 600 MG TABLET.ER PO SCH ×2 (08:29→21:25)
[2018-01-20] MEDS: PANTOPRAZOLE 40 MG TABLET PO SCH (08:29)
[2018-01-20] MEDS: HEPARIN SODIUM,PORCINE 5,000 UNIT/ML 1 ML VIAL SQ SCH ×2 (08:29→21:25)
[2018-01-20] MEDS: INSULIN ASPART 100 UNIT/ML 1 ML 10 ML VIAL SQ SCH ×4 (08:33→21:25)
[2018-01-20] MEDS: BUDESONIDE 1 MG/2 ML NEBU INHALATION SCH ×2 (09:03→20:35)
[2018-01-20] MEDS: IPRATROPIUM-ALBUTEROL 3 ML NEB INHALATION SCH ×4 (09:03→20:35)
[2018-01-20] MEDS: FORMOTEROL FUMARATE 20 MCG/2 ML NEBU INHALATION SCH ×2 (09:04→20:35)
[2018-01-20 11:33] LABS: Glucose,Whole Blood 205 mg/dL (75-99)
--- NOTE | 2018-01-20 11:38 | P.PN ---
Subjective Patient was admitted for COPD exacerbation still wheezing quite a bit was able to bring up phlegm and patient has significant clinical improvement since hospitalization patient may need 1 more day of hospitalization. Constitutional: Denied any fatigue denied any fever. Cardio vascular: denied any chest pain, palpitations Gastrointestinal denied any nausea vomiting Pulmonary: As mentioned in HPI Neurologic denied any new focal deficits Objective - Vital Signs Vital signs: Vital Signs Temp 98.0 F 01/20/18 06:55 Pulse 88 01/20/18 09:22 Resp 16 01/20/18 06:55 BP 132/77 01/20/18 06:55 Pulse Ox 93 L 01/20/18 06:55 Intake & Output 01/19/18 01/20/18 01/20/18 18:59 06:59 18:59 Other: # Voids 1 2 # Bowel Movements 0 - Exam PHYSICAL EXAMINATION: GENERAL: The patient is alert and oriented x3, not in any acute distress. Well developed, well nourished. HEENT: Pupils are round and equally reacting to light. EOMI. No scleral icterus. No conjunctival pallor. Normocephalic, atraumatic. No pharyngeal erythema. No thyromegaly. CARDIOVASCULAR: S1 and S2 present. No murmurs, rubs, or gallops. PULMONARY: Still has significant expiratory wheezing with significant improvement since hospitalization ABDOMEN: Soft, nontender, nondistended, normoactive bowel sounds. No palpable organomegaly. MUSCULOSKELETAL: No joint swelling or deformity. EXTREMITIES: No cyanosis, clubbing, or pedal edema. NEUROLOGICAL: Gross neurological examination did not reveal any focal deficits. SKIN: No rashes. - Labs CBC & Chem 7: 01/19/18 07:53 01/19/18 07:53 Labs: Abnormal Lab Results - Last 24 Hours (Table) 01/19/18 01/19/18 01/20/18 Range/Units 16:35 20:35 06:57 POC Glucose (mg/dL) 167 H 176 H 147 H (75-99) mg/dL 01/20/18 Range/Units 11:18 POC Glucose (mg/dL) 205 H (75-99) mg/dL Assessment and Plan Plan: -Acute hypercapnic respiratory failure secondary to COPD exacerbation patient is started on systemic steroids inhalational treatments patient doesn't wear oxygen at home. Patient mostly has a COPD exacerbation along with asthma exacerbation -Tachycardia secondary to hypoxemia expected to improve
--- NOTE | 2018-01-20 13:10 | P.PN ---
Subjective Progress Note Date: 01/20/18 Principal diagnosis: Acute exacerbation of her suspected moderate persistent extrinsic allergic chronic bronchial asthma, complicated by purulent tracheobronchitis Mr. Nash is a 57-year-old white male patient who currently has no primary care provider, presented to the emergency department on 01/17/2018 at 2036 with complaints of increasing shortness of breath, chest tightness, wheezing chest congestion, yellow phlegm production. Patient was in the emergency department earlier in the day for evaluation of his symptoms, has underlying history of asthma, and based on his symptoms and inpatient admission was recommended initially. However after he was given several nebulized treatments [id number] , he was given IV Solu-Medrol, was feeling better, and he insisted on going home. After he went home, his shortness of breath was still quite significant, patient was short of breath even with conversation. Hence he returned to the emergency department. 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 He was diagnosed with bronchial asthma in childhood, and his common triggers is change of weather, increase humidity. Patient had undergone ALLERGY testing in the past, and tested positive for multiple allergens, was receiving ALLERGY shots, however they did not seem to improve his symptoms, and patient was experiencing side effects from them, like headaches. Hence he discontinued those. Did have a remote history of smoking for about 10 years, quit in his 20s. Has a prior history of status asthmaticus, requiring intubation and mechanical ventilation at age of 25. No major exacerbations or hospitalizations since then. He is maintained on a combination of Advair 250/50, and Ventolin. Has nighttime symptoms less than weekly, uses Ventolin inhaler on average about 2-3 times a week. His asthma has been under good control for a long time until this episode. Patient denied fever or chills, his symptoms started with a cold last Monday, became progressively worse. Chest x-ray showed no acute process. EKG was normal sinus rhythm. Patient does not have any other significant medical history. He was started on oral prednisone 50 mg, breathing treatments, and was admitted for further management. On 01/19/2018 patient seen in follow-up on medical surgical floor. He reports some improvement in terms of chest tightness, but remains still very dyspneic even at rest. He was able to get up and go to the bathroom, and the patient states this has been an improvement in activity tolerance. He is wearing oxygen intermittently, although his room air pulse ox was 92%, lung sounds still reveal diminished lung sounds with diffuse wheezes, patient is afebrile. He states he had a severe coughing spell last night, and was able to bring up some sputum, and felt slightly better. Continues on IV Solu-Medrol, Pulmicort, Perforomist, empiric antibiotics, Claritin, and Singulair. Making slow improvement. Patient is seen today 01/20/2018 in follow-up on the regular medical floor. He is currently awake and alert in no acute distress. He is resting fairly comfortably in bed. He states he is breathing a bit better today compared to yesterday but still not near his baseline. He is still quite bronchospastic and wheezy. Stomach with minimal exertion. Maintaining O2 saturations in the low 90s on 2 L/m per nasal cannula. He is afebrile. Hemodynamically stable. Objective - Vital Signs Vital signs: Vital Signs Temp 98.0 F 01/20/18 06:55 Pulse 88 01/20/18 09:22 Resp 16 01/20/18 06:55 BP 132/77 01/20/18 06:55 Pulse Ox 93 L 01/20/18 06:55 Intake & Output 01/19/18 01/20/18 01/20/18 18:59 06:59 18:59 Other: # Voids 1 2 # Bowel Movements 0 - Exam GENERAL EXAM: Alert, pleasant, 57-year-old white male mildly short of breath, with normal conversation HEAD: Normocephalic/atraumatic. EYES: Normal reaction of pupils, equal size. Conjunctiva pink, sclera white. NOSE: Clear with pink turbinates. THROAT: No erythema or exudates. NECK: No masses, no JVD, no thyroid enlargement, no adenopathy. CHEST: No chest wall deformity. Symmetrical expansion. LUNGS: Diminished lung sounds, with diffuse wheezing and prolongation of the expiratory phase CVS: Regular rate and rhythm, normal S1 and S2, no gallops, no murmurs, no rubs ABDOMEN: Soft, nontender. No hepatosplenomegaly, normal bowel sounds, no guarding or rigidity. EXTREMITIES: No clubbing, no edema, no cyanosis, 2+ pulses and upper and lower extremities. MUSCULOSKELETAL: Muscle strength and tone normal. SPINE: No scoliosis or deformity SKIN: No rashes CENTRAL NERVOUS SYSTEM: Alert and oriented -3. No focal deficits, tone is normal in all 4 extremities. PSYCHIATRIC: Alert and oriented -3. Appropriate affect. Intact judgment and insight. - Labs CBC & Chem 7: 01/19/18 07:53 01/19/18 07:53 Labs: Abnormal Lab Results - Last 24 Hours (Table) 01/19/18 01/19/18 01/20/18 Range/Units 16:35 20:35 06:57 POC Glucose (mg/dL) 167 H 176 H 147 H (75-99) mg/dL 01/20/18 Range/Units 11:18 POC Glucose (mg/dL) 205 H (75-99) mg/dL Assessment and Plan Assessment: Assessment: #1. Acute exacerbation of her suspected moderate persistent extrinsic ALLERGIC chronic bronchial asthma with tracheobronchitis #2. Remote history of nicotine dependence, patient quit smoking over 25 years ago, carries a [id number]-[id number] smoking history #3. Multiple ALLERGIES Plan: The patient was seen and evaluated by Dr. Aggarwal. The patient is not back to his baseline but improved compared to yesterday. We'll continue with his current treatment plan including DuoNeb inhalations, Pulmicort and Perforomist inhalations, Singulair, Claritin, empiric antibiotics in the form of Augmentin. Continue IV Solu-Medrol. Increase his activity as tolerated. We'll continue to follow. I, the cosigning physician, performed a history & physical examination of the patient. Lungs sounds with bilateral end expiratory wheeze. Diminished Maintaining good O2 saturations in the 90s on 2 L/m per nasal cannula. I discussed the assessment and plan of care with my nurse practitioner, Kendra Mane. I attest to the above note as dictated by her.
[2018-01-20] MEDS: ALPRAZolam 0.25 MG TAB PO PRN (17:17)
[2018-01-20 17:37] LABS: Glucose,Whole Blood 144 mg/dL (75-99)
[2018-01-20 20:53] LABS: Glucose,Whole Blood 158 mg/dL (75-99)
[2018-01-20] MEDS: MONTELUKAST 10 MG TAB PO SCH (21:25)
[2018-01-21] MEDS: IPRATROPIUM-ALBUTEROL 3 ML NEB INHALATION PRN (02:58)
[2018-01-21] MEDS: methylPREDNISolone SOD SUCCI 125 MG/2 ML VIAL IV SCH ×4 (05:45→23:29)
[2018-01-21 07:19] LABS: Glucose,Whole Blood 153 mg/dL (75-99)
[2018-01-21] MEDS: IPRATROPIUM-ALBUTEROL 3 ML NEB INHALATION SCH ×4 (07:23→18:42)
[2018-01-21] MEDS: FORMOTEROL FUMARATE 20 MCG/2 ML NEBU INHALATION SCH ×2 (07:23→18:42)
[2018-01-21] MEDS: BUDESONIDE 1 MG/2 ML NEBU INHALATION SCH ×2 (07:23→18:42)
[2018-01-21] MEDS: guaiFENesin 600 MG TABLET.ER PO SCH ×2 (08:38→21:58)
[2018-01-21] MEDS: AMOXIC-POT CLAV 875-125MG 1 EACH TAB PO SCH ×2 (08:38→21:58)
[2018-01-21] MEDS: INSULIN ASPART 100 UNIT/ML 1 ML 10 ML VIAL SQ SCH ×4 (08:38→22:09)
[2018-01-21] MEDS: LORATADINE 10 MG TAB PO SCH (08:38)
[2018-01-21] MEDS: HEPARIN SODIUM,PORCINE 5,000 UNIT/ML 1 ML VIAL SQ SCH ×2 (08:39→21:59)
[2018-01-21] MEDS: PANTOPRAZOLE 40 MG TABLET PO SCH (08:39)
--- NOTE | 2018-01-21 11:32 | P.PN ---
Subjective Patient was admitted for COPD exacerbation still wheezing quite a bit was able to bring up phlegm and patient has significant clinical improvement since hospitalization patient may need 1 more day of hospitalization. 01/21/2018 Patient is having significant wheezes today but has symptomatic improvement in her respiratory is in his respiratory status slow to improve. Constitutional: Denied any fatigue denied any fever. Cardio vascular: denied any chest pain, palpitations Gastrointestinal denied any nausea vomiting Pulmonary: As mentioned in HPI Neurologic denied any new focal deficits Objective - Vital Signs Vital signs: Vital Signs Temp 98.0 F 01/21/18 06:26 Pulse 88 01/21/18 11:18 Resp 20 01/21/18 06:26 BP 155/85 01/21/18 06:26 Pulse Ox 95 01/21/18 07:25 Intake & Output 01/20/18 01/21/18 01/21/18 18:59 06:59 18:59 Intake Total 1200 Balance 1200 Intake: Oral 1200 Other: # Voids 1 2 - Exam PHYSICAL EXAMINATION: GENERAL: The patient is alert and oriented x3, not in any acute distress. Well developed, well nourished. HEENT: Pupils are round and equally reacting to light. EOMI. No scleral icterus. No conjunctival pallor. Normocephalic, atraumatic. No pharyngeal erythema. No thyromegaly. CARDIOVASCULAR: S1 and S2 present. No murmurs, rubs, or gallops. PULMONARY: Still has significant expiratory wheezing with significant improvement since hospitalization ABDOMEN: Soft, nontender, nondistended, normoactive bowel sounds. No palpable organomegaly. MUSCULOSKELETAL: No joint swelling or deformity. EXTREMITIES: No cyanosis, clubbing, or pedal edema. NEUROLOGICAL: Gross neurological examination did not reveal any focal deficits. SKIN: No rashes. - Labs CBC & Chem 7: 01/19/18 07:53 01/19/18 07:53 Labs: Abnormal Lab Results - Last 24 Hours (Table) 01/20/18 01/20/18 01/20/18 Range/Units 11:18 16:59 20:51 POC Glucose (mg/dL) 205 H 144 H 158 H (75-99) mg/dL 01/21/18 Range/Units 07:17 POC Glucose (mg/dL) 153 H (75-99) mg/dL Assessment and Plan Plan: -Acute hypercapnic respiratory failure secondary to COPD exacerbation patient is started on systemic steroids inhalational treatments patient doesn't wear oxygen at home. Patient mostly has a COPD exacerbation along with asthma exacerbation -Tachycardia secondary to hypoxemia expected to improve
[2018-01-21 12:36] LABS: Glucose,Whole Blood 130 mg/dL (75-99)
--- NOTE | 2018-01-21 14:00 | P.PN ---
Subjective Progress Note Date: 01/21/18 Principal diagnosis: Acute exacerbation of severe persistent asthma Mr. Nash is a 57-year-old white male patient who currently has no primary care provider, presented to the emergency department on 01/17/2018 at 2036 with complaints of increasing shortness of breath, chest tightness, wheezing chest congestion, yellow phlegm production. Patient was in the emergency department earlier in the day for evaluation of his symptoms, has underlying history of asthma, and based on his symptoms and inpatient admission was recommended initially. However after he was given several nebulized treatments [id number] , he was given IV Solu-Medrol, was feeling better, and he insisted on going home. After he went home, his shortness of breath was still quite significant, patient was short of breath even with conversation. Hence he returned to the emergency department. Patient recently moved from [place], and has not established himself with the primary care provider or ed physicians. He was diagnosed with bronchial asthma in childhood, and his common triggers is change of weather, increase humidity. Patient had undergone ALLERGY testing in the past, and tested positive for multiple allergens, was receiving ALLERGY shots, however they did not seem to improve his symptoms, and patient was experiencing side effects from them, like headaches. Hence he discontinued those. Did have a remote history of smoking for about 10 years, quit in his 20s. Has a prior history of status asthmaticus, requiring intubation and mechanical ventilation at age of 25. No major exacerbations or hospitalizations since then. He is maintained on a combination of Advair 250/50, and Ventolin. Has nighttime symptoms less than weekly, uses Ventolin inhaler on average about 2-3 times a week. His asthma has been under good control for a long time until this episode. Patient denied fever or chills, his symptoms started with a cold last Monday, became progressively worse. Chest x-ray showed no acute process. EKG was normal sinus rhythm. Patient does not have any other significant medical history. He was started on oral prednisone 50 mg, breathing treatments, and was admitted for further management. On 01/19/2018 patient seen in follow-up on medical surgical floor. He reports some improvement in terms of chest tightness, but remains still very dyspneic even at rest. He was able to get up and go to the bathroom, and the patient states this has been an improvement in activity tolerance. He is wearing oxygen intermittently, although his room air pulse ox was 92%, lung sounds still reveal diminished lung sounds with diffuse wheezes, patient is afebrile. He states he had a severe coughing spell last night, and was able to bring up some sputum, and felt slightly better. Continues on IV Solu-Medrol, Pulmicort, Perforomist, empiric antibiotics, Claritin, and Singulair. Making slow improvement. Patient is seen today 01/20/2018 in follow-up on the regular medical floor. He is currently awake and alert in no acute distress. He is resting fairly comfortably in bed. He states he is breathing a bit better today compared to yesterday but still not near his baseline. He is still quite bronchospastic and wheezy. Stomach with minimal exertion. Maintaining O2 saturations in the low 90s on 2 L/m per nasal cannula. He is afebrile. Hemodynamically stable. Reevaluated today on 01/21/2018, patient is showing some improvement, however continues to have intermittent cough and wheezing, some dyspnea on exertion even walking to the bathroom. No fever no chills no hemoptysis no chest pain. Chest x-ray on admission showed no evidence of acute process. Labs were reviewed, CBC is relatively normal and basic metabolic profile is normal. Objective - Vital Signs Vital signs: Vital Signs Temp 98.0 F 01/21/18 06:26 Pulse 88 01/21/18 11:18 Resp 20 01/21/18 06:26 BP 155/85 01/21/18 06:26 Pulse Ox 95 01/21/18 07:25 Intake & Output 01/20/18 01/21/18 01/21/18 18:59 06:59 18:59 Intake Total 1200 Balance 1200 Intake: Oral 1200 Other: # Voids 1 2 - Exam GENERAL EXAM: Alert, pleasant, 57-year-old white male mildly short of breath, with normal conversation HEAD: Normocephalic/atraumatic. EYES: Normal reaction of pupils, equal size. Conjunctiva pink, sclera white. NOSE: Clear with pink turbinates. THROAT: No erythema or exudates. NECK: No masses, no JVD, no thyroid enlargement, no adenopathy. CHEST: No chest wall deformity. Symmetrical expansion. LUNGS: Diminished lung sounds, wheezing and prolonged expiratory phase noted on forced expiratory maneuver. CVS: Regular rate and rhythm, normal S1 and S2, no gallops, no murmurs, no rubs ABDOMEN: Soft, nontender. No hepatosplenomegaly, normal bowel sounds, no guarding or rigidity. EXTREMITIES: No clubbing, no edema, no cyanosis, 2+ pulses and upper and lower extremities. MUSCULOSKELETAL: Muscle strength and tone normal. SPINE: No scoliosis or deformity SKIN: No rashes CENTRAL NERVOUS SYSTEM: Alert and oriented -3. No focal deficits, tone is normal in all 4 extremities. PSYCHIATRIC: Alert and oriented -3. Appropriate affect. Intact judgment and insight. - Labs CBC & Chem 7: 01/19/18 07:53 01/19/18 07:53 Labs: Abnormal Lab Results - Last 24 Hours (Table) 01/20/18 01/20/18 01/21/18 Range/Units 16:59 20:51 07:17 POC Glucose (mg/dL) 144 H 158 H 153 H (75-99) mg/dL 01/21/18 Range/Units 12:33 POC Glucose (mg/dL) 130 H (75-99) mg/dL Assessment and Plan Assessment: #1. Acute exacerbation of her suspected moderate persistent extrinsic ALLERGIC chronic bronchial asthma with tracheobronchitis #2. Remote history of nicotine dependence, patient quit smoking over 25 years ago, carries a [id number] smoking history #3. Multiple ALLERGIES Recommendation: Continue present course of bronchodilators, antibiotics, steroids, consider discharge planning in the next 24-48 hours. Must have follow -up with me on outpatient basis within the next few days postdischarge. Time with Patient: Less than 30
[2018-01-21 17:20] LABS: Glucose,Whole Blood 163 mg/dL (75-99)
[2018-01-21 21:19] LABS: Glucose,Whole Blood 169 mg/dL (75-99)
[2018-01-21] MEDS: MONTELUKAST 10 MG TAB PO SCH (21:58)
[2018-01-21] MEDS: ALPRAZolam 0.25 MG TAB PO PRN (22:04)
[2018-01-22] MEDS: IPRATROPIUM-ALBUTEROL 3 ML NEB INHALATION PRN ×2 (00:05→04:14)
[2018-01-22] MEDS: methylPREDNISolone SOD SUCCI 125 MG/2 ML VIAL IV SCH ×2 (05:53→12:03)
[2018-01-22 07:08] LABS: Glucose,Whole Blood 156 mg/dL (75-99)
[2018-01-22] MEDS: BUDESONIDE 1 MG/2 ML NEBU INHALATION SCH (07:09)
[2018-01-22] MEDS: FORMOTEROL FUMARATE 20 MCG/2 ML NEBU INHALATION SCH (07:09)
[2018-01-22] MEDS: IPRATROPIUM-ALBUTEROL 3 ML NEB INHALATION SCH ×3 (07:10→15:16)
[2018-01-22 07:37] VITALS: BP 153/83; TEMP 98
[2018-01-22] MEDS: HEPARIN SODIUM,PORCINE 5,000 UNIT/ML 1 ML VIAL SQ SCH (07:58)
[2018-01-22] MEDS: guaiFENesin 600 MG TABLET.ER PO SCH (07:58)
[2018-01-22] MEDS: INSULIN ASPART 100 UNIT/ML 1 ML 10 ML VIAL SQ SCH ×2 (07:58→12:52)
[2018-01-22] MEDS: LORATADINE 10 MG TAB PO SCH (07:58)
[2018-01-22] MEDS: PANTOPRAZOLE 40 MG TABLET PO SCH (07:58)
[2018-01-22] MEDS: AMOXIC-POT CLAV 875-125MG 1 EACH TAB PO SCH (08:12)
--- NOTE | 2018-01-22 11:41 | P.PN ---
Subjective Progress Note Date: 01/22/18 Principal diagnosis: Acute exacerbation of chronic bronchial asthma with tracheobronchitis Mr. Nash is a 57-year-old white male patient who currently has no primary care provider, presented to the emergency department on 01/17/2018 at 2036 with complaints of increasing shortness of breath, chest tightness, wheezing chest congestion, yellow phlegm production. Patient was in the emergency department earlier in the day for evaluation of his symptoms, has underlying history of asthma, and based on his symptoms and inpatient admission was recommended initially. However after he was given several nebulized treatments [id number] , he was given IV Solu-Medrol, was feeling better, and he insisted on going home. After he went home, his shortness of breath was still quite significant, patient was short of breath even with conversation. Hence he returned to the emergency department. 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 He was diagnosed with bronchial asthma in childhood, and his common triggers is change of weather, increase humidity. Patient had undergone ALLERGY testing in the past, and tested positive for multiple allergens, was receiving ALLERGY shots, however they did not seem to improve his symptoms, and patient was experiencing side effects from them, like headaches. Hence he discontinued those. Did have a remote history of smoking for about 10 years, quit in his 20s. Has a prior history of status asthmaticus, requiring intubation and mechanical ventilation at age of 25. No major exacerbations or hospitalizations since then. He is maintained on a combination of Advair 250/50, and Ventolin. Has nighttime symptoms less than weekly, uses Ventolin inhaler on average about 2-3 times a week. His asthma has been under good control for a long time until this episode. Patient denied fever or chills, his symptoms started with a cold last Monday, became progressively worse. Chest x-ray showed no acute process. EKG was normal sinus rhythm. Patient does not have any other significant medical history. He was started on oral prednisone 50 mg, breathing treatments, and was admitted for further management. On 01/19/2018 patient seen in follow-up on medical surgical floor. He reports some improvement in terms of chest tightness, but remains still very dyspneic even at rest. He was able to get up and go to the bathroom, and the patient states this has been an improvement in activity tolerance. He is wearing oxygen intermittently, although his room air pulse ox was 92%, lung sounds still reveal diminished lung sounds with diffuse wheezes, patient is afebrile. He states he had a severe coughing spell last night, and was able to bring up some sputum, and felt slightly better. Continues on IV Solu-Medrol, Pulmicort, Perforomist, empiric antibiotics, Claritin, and Singulair. Making slow improvement Patient is seen today 01/20/2018 in follow-up on the regular medical floor. He is currently awake and alert in no acute distress. He is resting fairly comfortably in bed. He states he is breathing a bit better today compared to yesterday but still not near his baseline. He is still quite bronchospastic and wheezy. Stomach with minimal exertion. Maintaining O2 saturations in the low 90s on 2 L/m per nasal cannula. He is afebrile. Hemodynamically stable. Reevaluated today on 01/21/2018, patient is showing some improvement, however continues to have intermittent cough and wheezing, some dyspnea on exertion even walking to the bathroom. No fever no chills no hemoptysis no chest pain. Chest x-ray on admission showed no evidence of acute process. Labs were reviewed, CBC is relatively normal and basic metabolic profile is normal. On 01/22/2018 patient seen in follow-up. He is awake, alert, resting in bed, in no acute distress, lung sounds are positive for faint wheezes over left lower lobe, overall much improved since admission. Much less bronchospastic and congested. We will request home oxygen assessment, vital signs have been stable, no fever, no chills. No new chest x-rays or labs today, patient has ambulated in the room, tolerated activity well. Home oxygen assessment shows O2 saturation of 87% with exercise, and room air oxygen at rest is 91%, he normally does not wear oxygen at his baseline. He may require oxygen short- term until complete recovery. Otherwise remains stable. Remains on high-dose steroids at 60 mg every 6 hours, nebulized bronchodilator's, Pulmicort and Perforomist in addition to Augmentin. Objective - Vital Signs Vital signs: Vital Signs Temp 98.0 F 01/22/18 07:00 Pulse 84 07/23/18 10:57 Resp 18 01/22/18 07:00 BP 153/83 01/22/18 07:00 Pulse Ox 91 L 01/22/18 09:25 Intake & Output 01/21/18 01/22/18 01/22/18 18:59 06:59 18:59 Intake Total 480 Balance 480 Intake: Oral 480 Other: # Voids 3 2 - Exam GENERAL EXAM: Alert, pleasant, 57-year-old white male in no acute distress HEAD: Normocephalic/atraumatic. EYES: Normal reaction of pupils, equal size. Conjunctiva pink, sclera white. NOSE: Clear with pink turbinates. THROAT: No erythema or exudates. NECK: No masses, no JVD, no thyroid enlargement, no adenopathy. CHEST: No chest wall deformity. Symmetrical expansion. LUNGS: Diminished lung sounds, with faint wheezes over left lower lobe, improved CVS: Regular rate and rhythm, normal S1 and S2, no gallops, no murmurs, no rubs ABDOMEN: Soft, nontender. No hepatosplenomegaly, normal bowel sounds, no guarding or rigidity. EXTREMITIES: No clubbing, no edema, no cyanosis, 2+ pulses and upper and lower extremities. MUSCULOSKELETAL: Muscle strength and tone normal. SPINE: No scoliosis or deformity SKIN: No rashes CENTRAL NERVOUS SYSTEM: Alert and oriented -3. No focal deficits, tone is normal in all 4 extremities. PSYCHIATRIC: Alert and oriented -3. Appropriate affect. Intact judgment and insight. - Labs CBC & Chem 7: 01/19/18 07:53 01/19/18 07:53 Labs: Abnormal Lab Results - Last 24 Hours (Table) 01/21/18 01/21/18 01/21/18 Range/Units 12:33 17:12 21:17 POC Glucose (mg/dL) 130 H 163 H 169 H (75-99) mg/dL 01/22/18 Range/Units 06:58 POC Glucose (mg/dL) 156 H (75-99) mg/dL Assessment and Plan Plan: Assessment: #1. Acute exacerbation of chronic bronchial asthma with tracheobronchitis #2. Remote history of nicotine dependence, patient quit smoking over 25 years ago, carries a [id number] smoking history #3. Multiple ALLERGIES Plan: Patient qualifies for home oxygen, otherwise stable, improving. Patient is stable for discharge home today, on prednisone taper, 5 more days of oral Augmentin, Advair, Ventolin, Claritin, Singulair. Follow-up with Dr. Hutchins in the office in one week I performed a history & physical examination of the patient and discussed their management with my nurse practitioner, Janett Ford. I reviewed the nurse practitioner's note and agree with the documented findings and plan of care. Lung sounds are positive for faint wheezes over left lower lobe, much improved, and less bronchospastic. The findings and the impression was discussed with the patient. I attest to the documentation by the nurse practitioner. Time with Patient: Less than 30
[2018-01-22 12:33] LABS: Glucose,Whole Blood 147 mg/dL (75-99)
[2018-01-22 15:23] VITALS: RESP 22
[2018-01-22 15:29] VITALS: PULSE 86
--- NOTE | 2018-01-22 17:19 | P.DS ---
Providers Date of admission: 01/18/18 15:26 Expected date of discharge: 01/22/18 Attending physician: MD Dr. Grace Koroma Consults: 01/17/18 22:35 Consult Physician Stat Consulting Provider: Fany Aggarwal Consult Reason/Comments: Acute asthma exacerbation Do you want consulting provider notified?: Yes, Notify in am Primary care physician: Stated None Hospital Course: Final Diagnoses: -Acute hypercapnic respiratory failure secondary to COPD exacerbation along with asthma exacerbation -Tachycardia secondary to hypoxemia, resolved Hospital course:Patient was admitted for COPD exacerbation with significant wheezing , productive cough .evaluated by pulmonary. Maintained on nebulized bronchodilators, IV antibiotics, systemic steroids. Significant clinical improvement. Patient will require oxygen along with nebulized treatments at discharge .patient has been cleared by pulmonary for discharge. Patient is being discharged home in a stable condition with guarded prognosis. Exam GENERAL: The patient is alert and oriented x3, not in any acute distress. CARDIOVASCULAR: S1 and S2 present. No murmurs, rubs, or gallops. PULMONARY: Bilateral bases diminished with significantly Improved expiratory wheezing ABDOMEN: Soft, nontender, nondistended, normoactive bowel sounds. No palpable organomegaly. NEUROLOGICAL: Gross neurological examination did not reveal any focal deficits. The impression and plan of care has been dictated as directed. : I performed a history and examination of this patient, discussed the same with the dictator. I agree with the dictator's note ,documented as a scribe. Any additional findings or plans will be noted. Time taken: 35 minutes Patient Condition at Discharge: Stable Plan - Discharge Summary Discharge Rx Participant: Yes New Discharge Prescriptions: New Amoxic-Pot Clav 875-125Mg [Augmentin 875-125] 1 each PO Q12HR #5 tab guaiFENesin [Mucinex] 1,200 mg PO Q12HR tablet.er Loratadine [Claritin] 10 mg PO DAILY tab Montelukast [Singulair] 10 mg PO HS #30 tab predniSONE 10 mg PO DIRECTED #30 tab Ipratropium-Albuterol Nebulize [Duoneb 0.5 mg-3 mg/3 ml Soln] 3 ml INHALATION RT-QID #120 ampul.neb Continue Fluticasone/Salmeterol [Advair 250-50 Diskus] 1 puff INHALATION RT-BID Albuterol Sulfate [Proair Hfa] 1 - 2 puff INHALATION RT-Q4H PRN PRN Reason: Shortness Of Breath Discontinued Pseudoephedrine 12Hr [Sudafed 12Hr] 120 mg PO Q12H PRN PRN Reason: Congestion Discharge Medication List Albuterol Sulfate [Proair Hfa] 1 - 2 puff INHALATION RT-Q4H PRN 01/17/18 [ History] Fluticasone/Salmeterol [Advair 250-50 Diskus] 1 puff INHALATION RT-BID 01/17/18 [History] Amoxic-Pot Clav 875-125Mg [Augmentin 875-125] 1 each PO Q12HR #5 tab 01/22/18 [ Rx] Ipratropium-Albuterol Nebulize [Duoneb 0.5 mg-3 mg/3 ml Soln] 3 ml INHALATION RT -QID #120 ampul.neb 01/22/18 [Rx] Loratadine [Claritin] 10 mg PO DAILY tab 01/22/18 [Rx] Montelukast [Singulair] 10 mg PO HS #30 tab 01/22/18 [Rx] guaiFENesin [Mucinex] 1,200 mg PO Q12HR tablet.er 01/22/18 [Rx] predniSONE 10 mg PO DIRECTED #30 tab 01/22/18 [Rx] Follow up Appointment(s)/Referral(s): aFny Aggarwal MD [STAFF PHYSICIAN] - 02/06/18 2:30 pm Ambulatory/Diagnostic Orders: Complete Blood Count w/diff [LAB.AMB] Time Frame: 3 Days, Location: None Selected Patient Instructions/Handouts: Asthma (DC) Activity/Diet/Wound Care/Special Instructions: 2lnc O2
--- NOTE | 2018-01-23 08:59 | P.PN ---
Progress Note - Text Progress Note Date: 01/23/18 patient had moderate severe persistent asthma on presentation.however this will be further clarified on outpatient basis,whether he has copd based on pft after full treatment of this episode
== END 2018-01-22 17:15 | disposition home or self-care (01) | DRG 190 ==
LOC: EC 20:36 → 4MS4W 22:28 → OBSVTOIN 01-18 15:26
PROVIDERS: ADMIT Internal Medicine; ATTEND Internal Medicine
DX: J44.0 Chronic obstructive pulmonary disease with (acute) lower respiratory infection (principal); J96.02 Acute respiratory failure with hypercapnia; J96.01 Acute respiratory failure with hypoxia; J45.51 Severe persistent asthma with (acute) exacerbation; J20.9 Acute bronchitis, unspecified; J44.1 Chronic obstructive pulmonary disease with (acute) exacerbation; Z87.891 Personal history of nicotine dependence; Z79.52 Long term (current) use of systemic steroids; Z86.19 Personal history of other infectious and parasitic diseases; Z91.018 Allergy to other foods; Z81.8 Family history of other mental and behavioral disorders; Z82.49 Family history of ischemic heart disease and other diseases of the circulatory system
CPT/HCPCS: 80048; 83036; 85025; 85027; 94640; 94667; 94760; 99285